=== PATIENT | female | born 1990 ===

== ENCOUNTER 2025-05-18 05:59 | Day surgery (SDC) | payer OTHER, SELFPAY ==
[2025-05-18 06:44] VITALS: BP 140/90
[2025-05-18 06:47] VITALS: BMI 31.3
[2025-05-18] MEDS: NORMOSOL-R/PLASMALYTE-A 1000 IV (07:03)
[2025-05-18 07:06] LABS: Glucose - Point of Care 89 mg/dl (70-99)
[2025-05-18 08:00] VITALS: BP 82/48
[2025-05-18 08:15] VITALS: BP 116/66
[2025-05-18 08:30] VITALS: BP 109/66
== END 2025-05-18 08:55 | disposition home or self-care (01) ==
LOC: SDS 05:59
PROVIDERS: ATTENDING PHYSICIAN Surgery
DX: K60.2 Anal fissure, unspecified (principal)
CPT/HCPCS: 46505; 82962; J0585